=== PATIENT | male | born 1965 | race Caucasian/White ===

== ENCOUNTER 2020-01-05 17:00 | Emergency (ER) | payer OTHER ==
--- OUTSIDE RECORDS SUMMARY | 2020-01-05 17:03 | XMS REPORT | Continuity of Care Document ---
:1965 Author Organization [facility] t Address [address] [place] [address] Care Team Providers Name Role Phone Asked, Pcp Primary Care Physician Unavailable Noah GALLARDO Attending Clinician Problems This patient has no known problems. Allergies, Adverse Reactions, Alerts This patient has no known allergies or adverse reactions. Social History Social Habit Start Date Stop Date Quantity Comments Source Sex Assigned At Lorraine Gil Medications This patient has no known medications. Procedures Procedure Date / Time Performed Performing Clinician [facility] e CT HEART SCAN PLUS W 2019-05-27 10:03:21 Pablo Zamora PHYSICIAN ORDER US VASCULAR SCREENING 2019-05-27 10:00:00 Pablo Zamora Jew HEART SCAN PLUS Plan of Care Planned Activity Planned Date Details Comments Source Future Scheduled 2019-10-19 INFLUENZA VACCINE [place] [facility] 00:00:00 [code = INFLUENZA VACCINE] Future Scheduled 2014-02-07 COLONOSCOPY SCREENING [place] [facility] [facility] 00:00:00 [code = COLONOSCOPY SCREENING] Future Scheduled 2014-02-07 SHINGLES VACCINES [place] [facility] 00:00:00 (#1) [code = SHINGLES VACCINES (#1)] Encounters Start End Encounter Admission Attending Care Care Encounter Source Date/Time Date/Time Type Type Clinicians Facility Department ID 2019-05-27 2019-05-27 Outpatient [facility] [id number] [address] 00:00:00 00:00:00 PABLO [address] 2019-05-27 2019-05-27 Outpatient [facility] [id number] 00:00:00 00:00:00 PABLO [address] Results Test Description Test Time Test Comments Results Result [facility] e Comments Pv vascular Interface, Radiology [facility] screening heart 9 Results In - Methodi st scan plus (self 09:57:00 05/27/2019 9:58 AM pay) CDT Vascular Diagnostic Laboratory Screening Report [address] [address] Pat.Name: JENNIFER JIMENEZ.ID: [id number] St.Date: 05/27/2019 Refer.MD: PABLO ZAMORA MD Exam Time: 8:43:00 AM Study Type:Screening Age: 11 1965,54Y Sex: MALE Sonogrphr: TRAVIS Anderson Pat. Stat.:Outpatient Tape Vol: ML, Echo Event ID:[id number] Order ID: [id number] Reason for Study:Vascular Screening.Procedures: Ankle/brachial pressures, Colorflow, Grayscale/2D, Pulsedwave DopplerRace: SUMMARY : Vascula r Screening ResultsScreening results are brief snapshots designed to detect functionalabnormal findings of carotid artery disease, abdominal aorticaneurysms (AAA), and peripheral arterial disease (PAD). Please Note: Screening results do not replace a complete vascularexamination.Ca rotid ArteryRight Internal Carotid Artery (X) Abnormal: Plaque present but no stenosis Left Internal Carotid Artery (X) Abnormal: Plaque present but no stenosis.Abdominal AortaAorta not visualized due to patient drinking coffee and bodyhabitus.Ankle/Br achial Index(X) Normal: No evidence of peripheral arterial disease (PAD).Recommendations Your results are ABNORMAL. Please take these results to yourphysician and discuss them in further detail. If you do not have a physician you can call our [facility] to schedule an appointment at [phone].--------- -----FINDINGS:-------- ------Signed 05/27/2019 09:57 Dae Trujillo MD, RPVI
--- OUTSIDE RECORDS SUMMARY | 2020-01-05 17:03 | XMS REPORT | Clinical Summary ---
:1965 Author Organization [facility] Address [address] [place] [address] Care Team Providers Name Role Phone Asked, No Pcp Primary Care Provider Unavailable Allergies Not on File Medications Not on file Active Problems Not on file Encounters Date Type Specialty Care Team Description 05/27/2019 Hospital Encounter Procedural Jose Zamora, Cardiology MD Pablo unspecified hyperlipidemia type 05/20/2019 Transcribe Orders Procedural Ladonna Zamora Cardiology MD Pablo unspecified hyperlipidemia type (Primary Dx) after 01/04/2019 Social History Tobacco Use Types Packs/Day Years Used Date Never Assessed Sex Assigned at Date Recorded Not on file Last Filed Vital Signs Not on file Plan of Treatment Health Maintenance Due Date Last Done Comments COLONOSCOPY SCREENING 02/07/2014 SHINGLES VACCINES (#1) 02/07/2014 INFLUENZA VACCINE 10/19/2019 Procedures Procedure Name Priority Date/Time Associated Diagnosis Comme nts CT HEART SCAN PLUS Routine 05/27/2019 10:03 Hyperlipidemia, Re sults for this W PHYSICIAN ORDER AM CDT unspecified procedure are in hyperlipidemia type the resu lts section. US VASCULAR Routine 05/27/2019 10:00 Hyperlipidemia, Results for this SCREENING HEART AM CDT unspecified procedure ar e in SCAN PLUS hyperlipidemia type the resu lts section. after 01/04/[address] heart scan plus w physician order (self pay) (05/27/2019 10:03 AM CDT) Specimen Narrative Performed At [facility] Nuclear Cardi ology and Cardiac CT [address] [facility], [place] [address] CT Calc ium Scoring Report Pat.Name: VENU JIMENEZ Pat.ID: [id number] .Date: 05/27/2019 Refer.MD: PABLO ZAMORA MD Exam Time: 8:51:00 AM Study Type:C T Calcium Scoring Height: 67in Weight: 285lb BSA: 2.35 m2 Ag e: 1965,54Y Sex: MALE HR: 66 bpm Nuclear Tech:Mitchell Dougherty RT(NM)(CT), [facility] Pat. Stat.:Outpatient CPT - 4: Chávez Pay Nuclear Ev ent ID:[id number] Order ID: [id number] Procedures: CT Flash mode Race: C SUMMARY: Technique: Sequential 3mm CT cuts were obtained thr ough the chest using the Siemens Somatom Force CT scanner with EC G gating. Interactive image viewing and volumetric display and ania sis were also performed. The CAC score was quantified using the Agats ton scoring method. Non-contrast Cardiac CT results are as f ollows: The total Coronary Artery Calcium Score (CACS) is 204 . Calcium is distributed in the coronary arteries as follows: Left main: 18 . Left Anterior Descendi ng (LAD): 133 . Left Circumflex (LCx): 48 . Right Coronary Artery (RCA): 5 . The non-contrast CT shows a normal cardi ac size, no pericardial abnormalities, a normal aortic root of 3.3cm, a normal thoracic ascending aorta of 3.2cm, and a normal d escending thoracic aorta of 2.6cm. The left main and right coronary arteries appear to originate normally from the left and right sinus o f Valsalva. The left circumflex coronary artery is dominant. Non-Cardiac Findings: Fatty infiltrati on of the liver is noted. (HU 10) Small hiatal hernia. Conclusion: Abnormal non-contrast cardiac CT. The co ronary artery calcium score indicates a moderate extent of coronary atherosclerosis with a 1-2% / year risk of a major cardiac event. Th e CACS is at the 88th percentile based on age and gender. Recommendation: (1) Intensive risk factor modification i s indicated to prevent further progression of coronary atherosclerosis. Unless contraindicated, low dose aspirin (81mg) is recommended in ad dition to treatment of hyperlipidemia with target LDL levels <7 0mg/dl. (2) Stress myocardial perfusion imaging may be helpful in selected patients such as those with metabolic sy ndrome or diabetes mellitus in whom silent myocardial ischemia is more prevalent. FINDINGS: Signed 05/29/2019 07:28 PM Yao Bolanos MD Procedure Note Interface, Radiology Results In - 2019 7:29 PM CDT Nuclear Cardiology and Cardiac CT [address] [place] [address] CT Calcium Scoring Report Pat.Name: VENU JIMENEZ Pat.I D: [id number] St.Date: 05/27/2019 Refer .MD: PABLO ZAMORA MD Exam Time: 8:51:00 AM Study Type:CT Calcium Scoring Height: 67in Weigh t: 285lb BSA: 2.35 m2 Age: 11 1965,54Y Sex: MALE HR: 66 bpm Nuclear Tech:RT Kev(AR)(CT), [facility] Pat. Stat.:Outpatient CPT - 4: Chávez Pay Nucle ar Event ID:[id number] Order ID: [id number] Procedures: CT Flash mode Race: C SUMMARY: Technique: Sequential 3mm CT cuts were obtained thr ough the chest using the Siemens Somatom Force CT scanner with EC G gating. Interactive image viewing and volumetric display and ania sis were also performed. The CAC score was quantified using the Agats ton scoring method. Non-contrast Cardiac CT results are as f meeralows: The total Coronary Artery Calcium Score (CACS) is 204 . Calcium is distributed in the coronary arteries as follows: Left main: 18 . Left Anterior Descendin g (LAD): 133 . Left Circumflex (LCx): 48 . Right Coronary A rtery (RCA): 5 . The non-contrast CT shows a normal cardi ac size, no pericardial abnormalities, a normal aortic root of 3.3cm, a normal thoracic ascending aorta of 3.2cm, and a normal d escending thoracic aorta of 2.6cm. The left main and right coronary arteries appear to originate normally from the left and right sinus o f Valsalva. The left circumflex coronary artery is dominant. Non-Cardiac Findings: Fatty infiltratio n of the liver is noted. (HU 10) Small hiatal hernia. Conclusion: Abnormal non-contrast cardiac CT. The co ronary artery calcium score indicates a moderate extent of coronary atherosclerosis with a 1-2% / year risk of a major cardiac event. The CACS is at the 88th percentile based on age and gender. Recommendation: (1) Intensive risk factor modification i s indicated to prevent further progression of coronary atherosclerosis. Unless contraindicated, low dose aspirin (81mg) is recommended in ad dition to treatment of hyperlipidemia with target LDL levels <7 0mg/dl. (2) Stress myocardial perfusion imaging may be helpful in selected patients such as those with metabolic sy ndrome or diabetes mellitus in whom silent myocardial ischemia is more prevalent. FINDINGS: Signed 05/29/2019 07:28 PM Yao Bolanos MD Performing Organization Address City/State/ZIP Code [facility] [address] [place] [address] Pv vascular screening heart scan plus (self pay) (05/27/2019 10:00 AM CDT) Specimen Narrative Performed At [facility] Vascular D iagnostic Laboratory Screening Report [address] [place] [address] Pat.Name: VENU JIMENEZ.ID: [id number] .Date: 05/27/2019 Refer.MD: PABLO ZAMORA MD Exam Time: 8:43:00 AM Study Type:Roque FLORES Age: 11 1965,54Y Sex: MALE Sonogrphr: TRAVIS Anderson Pat. Stat.:Out patient Tape Vol: ML, Echo Chuyita nt ID:[id number] Order ID: [id number] Reason for Study:Vascular Screening. Procedures: Ankle/brachial pressures, Co lorflow, Grayscale/2D, Pulsed wave Doppler Race: SUMMARY: Vascular Screening Results Screening results are brief snapshots de signed to detect functional abnormal findings of carotid artery dise ase, abdominal aortic aneurysms (AAA), and peripheral arterial disease (PAD). Please Note: Screening results do not re place a complete vascular examination. Carotid Artery Right Internal Carotid Artery (X) Abnormal: Plaque present but no st enosis Left Internal Carotid Artery (X) Abnormal: Plaque present but no st enosis. Abdominal Aorta Aorta not visualized due to patient dr inking coffee and body habitus. Ankle/Brachial Index (X) Normal: No evidence of peripheral arterial disease (PAD). Recommendations Your results are ABNORMAL. Please t mariah these results to your physician and discuss them in further de tail. If you do not have a physician you can c all our [facility] to schedule an appointme nt at [phone]. FINDINGS: Signed 05/27/2019 09:57 AM Bj Trujillo MD, RPVI Procedure Note Interface, Radiology Results In - 2019 9:58 AM CDT Vascular Diagnostic Laboratory Screening Rep ort [address] [address] Pat.Name: VENU JIMENEZ D: [id number] .Date: 05/27/2019 Refer .MD: PABLO ZAMORA MD Exam Time: 8:43:00 AM Study Type:Screening Age: 10 1965,54Y Sex: MALE Sonogrphr: TRAVIS Anderson Pat. Stat.:Outpatient Tape Vol: ML, Echo Event ID:[id number] Order ID: [id number] Reason for Study:Vascular Screening. Procedures: Ankle/brachial pressures, Co lorflow, Grayscale/2D, Pulsed wave Doppler Race: SUMMARY: Vascular Screening Results Screening results are brief snapshots de signed to detect functional abnormal findings of carotid artery dise ase, abdominal aortic aneurysms (AAA), and peripheral arterial disease (PAD). Please Note: Screening results do not re place a complete vascular examination. Carotid Artery Right Internal Carotid Artery (X) Abnormal: Plaque present but no andre nosis Left Internal Carotid Artery (X) Abnormal: Plaque present but no andre nosis. Abdominal Aorta Aorta not visualized due to patient dr inking coffee and body habitus. Ankle/Brachial Index (X) Normal: No evidence of peripheral a rterial disease (PAD). Recommendations Your results are ABNORMAL. Please eleazar e these results to your physician and discuss them in further de tail. If you do not have a physician you can c all our [facility] to schedule an appointme nt at [phone]. 

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
--- NOTE | 2020-01-05 17:39 | EDPHYS ---
Physician Documentation [facility] Name: Venu Redd Age: 54 yrs Sex: Male : 1965 Arrival Date: 01/05/2020 Time: 17:03 Bed 19 Private MD: Pablo Zamora V ED Physician Keon Cheung HPI: 01/04 17:46 This 54 yrs old Male presents to ER via Ambulatory with complaints of Foot kb Injury, Toe Injury. 17:46 The patient has not experienced similar symptoms in the past. The patient has not kb recently seen a physician. 17:47 The patient presents with an injury, pain, swelling, tenderness. The complaints affect kb the right foot. Context: The problem was sustained at home, resulted from the patient kicking, furniture, the patient can fully bear weight, the patient is able to ambulate. Onset: The symptoms/episode began/occurred 2 day(s) ago. Modifying factors: The symptoms are alleviated by nothing, the symptoms are aggravated by movement. Associated signs and symptoms: Pertinent positives: swelling, Pertinent negatives: calf tenderness, fever, nausea, numbness, rash, tingling, vomiting, warmth, weakness. Severity of symptoms: At their worst the symptoms were moderate, in the emergency department the symptoms are unchanged. Pt reports he accidentally kicked a chair 2 days ago. Reports swelling, bruising, pain to right foot. Historical: - Allergies: 17:11 No Known Allergies; bp - Home Meds: 17:11 None [Active]; bp - PMHx: 17:11 Diabetes - NIDDM; kidney disease; Hypertension; bp - Immunization history:: Adult Immunizations up to date. - Social history:: Smoking status: Patient denies any tobacco usage or history of. ROS: 17:40 Constitutional: Negative for fever, chills, and weight loss, Cardiovascular: Negative kb for chest pain, palpitations, and edema, Respiratory: Negative for shortness of breath, cough, wheezing, and pleuritic chest pain, Abdomen/GI: Negative for abdominal pain, nausea, vomiting, diarrhea, and constipation, Back: Negative for injury and pain, Skin: Negative for injury, rash, and discoloration, Neuro: Negative for headache, weakness, numbness, tingling, and seizure. 17:40 MS/extremity: Positive for ecchymosis, pain, swelling, tenderness, of the lateral side of right foot. Exam: 17:40 Constitutional: This is a well developed, well nourished patient who is awake, alert, kb and in no acute distress. Head/Face: Normocephalic, atraumatic. Chest/axilla: Normal chest wall appearance and motion. Nontender with no deformity. No lesions are appreciated. Cardiovascular: Regular rate and rhythm with a normal S1 and S2. No gallops, murmurs, or rubs. Normal PMI, no JVD. No pulse deficits. Respiratory: Lungs have equal breath sounds bilaterally, clear to auscultation and percussion. No rales, rhonchi or wheezes noted. No increased work of breathing, no retractions or nasal flaring. Abdomen/GI: Soft, non-tender, with normal bowel sounds. No distension or tympany. No guarding or rebound. No evidence of tenderness throughout. Skin: Warm, dry with normal turgor. Normal color with no rashes, no lesions, and no evidence of cellulitis. Neuro: Awake and alert, GCS 15, oriented to person, place, time, and situation. Cranial nerves II-XII grossly intact. Motor strength 5/5 in all extremities. Sensory grossly intact. Cerebellar exam normal. Normal gait. 17:40 Musculoskeletal/extremity: Extremities: grossly normal except: noted in the lateral side of right foot: ecchymosis, erythema, pain, swelling, tenderness, ROM: limited active range of motion due to pain, in the lateral side of right foot, Circulation is intact in all extremities. Sensation intact. Weight bearing: able to fully bear weight. Vital Signs: 17:09 BP 217 / 90; Pulse 82; Resp 17; Temp 98; Pulse Ox 97% ; Weight 129.27 kg; Height 5 ft. bp 7 in. (170.18 cm); 17:47 BP 205 / 93; Pulse 75; Resp 16; Pulse Ox 96% ; bp 17:09 Body Mass Index 44.64 (129.27 kg, 170.18 cm) bp MDM: 17:08 Patient medically screened. kb 17:39 Data reviewed: vital signs, nurses notes. Data interpreted: Pulse oximetry: on room air kb is 97 %. Interpretation: normal. Counseling: I had a detailed discussion with the patient and/or guardian regarding: the historical points, exam findings, and any diagnostic results supporting the discharge/admit diagnosis, radiology results, the need for outpatient follow up, a family practitioner, to return to the emergency department if symptoms worsen or persist or if there are any questions or concerns that arise at home. 17:40 Special discussion: I have referred the patient to see his PCP for further evaluation kb of high blood pressure. 01/04 17:11 Order name: Foot Right 3 View XRAY kb Administered Medications: 17:40 Drug: [place] 10 mg-325 mg 1 tabs Route: PO; bp 17:47 Follow up: Response: Medication administered at discharge. bp Disposition: 01/05/20 17:39 Discharged to Home. Impression: Displaced fracture of fifth metatarsal bone, right foot, Displaced fracture of proximal phalanx of right lesser toe(s). - Condition is Stable. - Discharge Instructions: Metatarsal Fracture. - Prescriptions for Diclofenac Sodium 75 mg Oral Tablet, Delayed Release (E.C.) - take 1 tablet by ORAL route 2 times per day As needed; 30 tablet. - Medication Reconciliation Form, Thank You Letter, Antibiotic Education, Prescription Opioid Use form. - Follow up: Emergency Department; When: As needed; Reason: Worsening of condition. Follow up: Private Physician; When: 2 - 3 days; Reason: Recheck today's complaints, Continuance of care, Re-evaluation by your physician. Addendum: 01/07/2020 21:45 Co-signature as Attending Physician, Keon Cheung MD. r n Signatures: Dispatcher [employer] EDFL Eli Nicholson, TENNIS PLAYER-C TENNIS PLAYER-Ckb Keon Cheung MD MD rn Peltier, Brian, RN RN bp Corrections: (The following items were deleted from the chart) 01/04 17:51 17:39 01/05/2020 17:39 Discharged to Home. Impression: Displaced fracture of fifth bp metatarsal bone, right foot; Displaced fracture of proximal phalanx of right lesser toe(s). Condition is Stable. Forms are Medication Reconciliation Form, Thank You Letter, Antibiotic Education, Prescription Opioid Use. Follow up: Emergency Department; When: As needed; Reason: Worsening of condition. Follow up: Private Physician; When: 2 - 3 days; Reason: Recheck today's complaints, Continuance of care, Re-evaluation by your physician. kb
[2020-01-05] MEDS ORDERED: HYDROCODONE/APAP 10/325 TAB ONE (17:55)
[2020-01-05 18:00] VITALS: TEMP 98
[2020-01-05 18:02] VITALS: BP 205/93; O2SAT 96
--- NOTE | 2020-01-05 18:23 | RAD REPORT ---
EXAM DESCRIPTION: RAD - Foot Right 3 View - 01/05/2020 5:26 pm CLINICAL HISTORY: PAIN COMPARISON: No comparisons FINDINGS: Oblique fracture involves the proximal phalanx of the fifth toe with adjacent soft tissue swelling. No additional fracture or dislocation. Large calcaneal spurs.
== END 2020-01-05 17:51 | disposition home or self-care (01) ==
LOC: ER 17:00
DX: S92.351A Displaced fracture of fifth metatarsal bone, right foot, initial encounter for closed fracture (principal); S92.511A Displaced fracture of proximal phalanx of right lesser toe(s), initial encounter for closed fracture; W22.8XXA Striking against or struck by other objects, initial encounter; Y93.9 Activity, unspecified; Y92.009 Unspecified place in unspecified non-institutional (private) residence as the place of occurrence of the external cause; N28.9 Disorder of kidney and ureter, unspecified; I10 Essential (primary) hypertension
CPT/HCPCS: 99284